=== PATIENT | male | born 1960 | race Caucasian/White ===

== ENCOUNTER 2024-02-24 17:12 | Emergency (ER) | payer OTHER ==
[~2024-02-24] VITALS: Ht 154.9 cm; Wt 72.6 kg
[2024-02-24 17:25] VITALS: BP 141/84; PULSE 63; RESP 18; TEMP 98.3; O2SAT 96
--- NOTE | 2024-02-24 17:38 | NUR ---
PT TO BED 1
--- NOTE | 2024-02-24 17:39 | NUR ---
64YO M PRESENTS FOR EVALUATION OF BILATERAL EYE REDNESS/BURNING PAIN SINCE 1PM. PT STATES HE WAS CUTTING GRASS WHEN UNKNOWN FLUID SPLASHED ON BILAT EYES. DENIES FEVER, CHILLS, N, V, D, SOB, CP, URINARY SYMPTOMS. AOX4, AMBULATORY, VSS, HR EVEN/REGULAR, BILAT LUNG CLR, NAD, SAFETY MAINTAINED, CALL LIGHT IN REACH. HX: KARY RICHARDSON
[2024-02-24 17:49] VITALS: O2SAT 96
[2024-02-24] MEDS: FLUORESCEIN OPTH STRIP 1 MG OP ONE (18:32)
[2024-02-24] MEDS ORDERED: HYD1C TP (18:50)
[2024-02-24] MEDS ORDERED: OFLO5SOL OP (18:50)
--- NOTE | 2024-02-24 19:13 | NUR ---
Patient discharged with v/s stable. Written and verbal after care instructions given and explained. Patient alert, oriented and verbalized understanding of instructions. Ambulatory with steady gait. All questions addressed prior to discharge. ID band removed. Patient advised to follow up with PMD. Rx of CIPRO, METRONIDAZOLE given. Opportunity to ask questions provided and answered.
--- NOTE | 2024-02-24 19:27 | NUR ---
Chart checked and completed. The patient's care was reviewed and supervised by ALEX ALEGRE RN.
== END 2024-02-24 19:13 | disposition home or self-care (01) ==
LOC: MED 17:12
DX: H10.9 Unspecified conjunctivitis (principal); L25.9 Unspecified contact dermatitis, unspecified cause; E11.9 Type 2 diabetes mellitus without complications; Z79.899 Other long term (current) drug therapy
CPT/HCPCS: 99283